=== PATIENT | male | born 1990 | race Caucasian/White ===

== ENCOUNTER 2019-07-27 08:46 | Emergency (ER) | payer OTHER ==
[~2019-07-27] VITALS: Ht 185.4 cm; Wt 95.3 kg
[~2019-07-27 08:46] MED LIST: XANAX 0.5 MG0.5 MG
[2019-07-27 08:48] VITALS: BP 127/79
[2019-07-27] MEDS ORDERED: BACTRIM DS TAB1 EACH PO (09:10)
[2019-07-27] MEDS ORDERED: KEFLEX500 M1 PO (09:10)
== END 2019-07-27 09:27 | disposition home or self-care (01) ==
LOC: ER 08:46
DX: L03.113 Cellulitis of right upper limb (principal); L02.413 Cutaneous abscess of right upper limb; Z88.6 Allergy status to analgesic agent; Z86.14 Personal history of Methicillin resistant Staphylococcus aureus infection

== ENCOUNTER 2019-08-05 23:31 | Emergency (ER) | payer OTHER ==
[~2019-08-05] VITALS: Ht 185.4 cm; Wt 95.3 kg
[~2019-08-05 23:31] MED LIST changes: +BACTRIM DS TAB1 EACH PO; +KEFLEX500 M1 PO
[2019-08-06 02:01] VITALS: BP 145/84
== END 2019-08-06 02:03 | disposition short-term general hospital (02) ==
LOC: ER 23:31
DX: S62.171A Displaced fracture of trapezium [larger multangular], right wrist, initial encounter for closed fracture (principal); T79.A11A Traumatic compartment syndrome of right upper extremity, initial encounter; F41.0 Panic disorder [episodic paroxysmal anxiety]; Z86.14 Personal history of Methicillin resistant Staphylococcus aureus infection; Z88.8 Allergy status to other drugs, medicaments and biological substances; W20.8XXA Other cause of strike by thrown, projected or falling object, initial encounter; Y93.89 Activity, other specified; Y92.89 Other specified places as the place of occurrence of the external cause; Y99.8 Other external cause status